=== PATIENT | male | born 1960 | race Caucasian/White ===

== ENCOUNTER → 2020-12-18 | Outpatient (CLI) | payer OTHER ==
--- NOTE | 2020-12-18 08:39 | Diagnostic Imaging Report ---
PROCEDURE: CT abdomen and pelvis without contrast. TECHNIQUE: Multiple contiguous axial images were obtained through the abdomen and pelvis without the use of intravenous contrast. Auto Exposure Controls were utilized during the CT exam to meet ALARA standards for radiation dose reduction. INDICATION: Hematuria. History of kidney stones. No prior studies available for comparison. FINDINGS: The lung bases are clear. There is a 5 cm liver cyst present. The gallbladder and bile ducts are normal. The spleen, pancreas and adrenals are normal. There is a 2 mm nonobstructing calculus in the left kidney. There may be several punctate nonobstructing stones on the right. No suspicious mass or hydronephrosis is seen on either side. The ureters and bladder are normal. Fat planes around the prostate are well-maintained. There is diverticulosis of the colon with no evidence of diverticulitis or other acute bowel abnormality. There is no ascites. There is no adenopathy. There is no acute bony abnormality. IMPRESSION: There is a nonobstructing stone in the left kidney with possible tiny stones on the right. No acute abnormality is seen. Dictated by: Dictated on workstation # [id number]
== END ==
LOC: RAD 08:15
PROVIDERS: ATTEND Urology
DX: N20.0 Calculus of kidney (principal); N40.0 Benign prostatic hyperplasia without lower urinary tract symptoms
CPT/HCPCS: 74176

== ENCOUNTER → 2021-07-17 | Outpatient (CLI) | payer OTHER ==
[~2021-07-17] MED LIST: CATHETER FLUSH 10 ML SYR IVP PRN
[2021-07-17 09:24] VITALS: BP 133/78
--- NOTE | 2021-07-17 14:34 | NUCLEAR STRESS TEST ---
TREADMILL NUCLEAR STRESS TEST Date of procedure: 07/17/2021. Primary care provider: Unknown. Admitting physician: Alvaro Hicks Jr., MD. INDICATION: Premature ventricular complexes. BASELINE ELECTROCARDIOGRAM: Sinus tachycardia at 103 beats per minutes with right axis deviation and low voltage in the precordial leads. STRESS TEST PROCEDURE: The patient was exercised for a total of 4 minutes and 0 seconds of the standard Gregorio protocol achieving a maximum MET level of 5.8. The resting heart rate was 103 bpm and the peak heart rate was 151 bpm, which represents 93% of the maximum predicted heart rate. The resting blood pressure was 133/78 mmHg and the peak blood pressure was 202/95 mmHg. This represents a normal heart rate and a hypertensive blood pressure response to exercise with resting tachycardia. The test was stopped due to fatigue. There was no chest discomfort during the test. There were isolated premature ventricular complexes during stress that resolved in recovery. There were no significant stress induced electrocardiogram changes. The patient exhibited fair exercise capacity for age. NUCLEAR PROCEDURE: The patient was administered 10.9 mCi of intravenous technetium 99m Tetrofosmin at rest for the rest images. The patient was subsequently administered 31 mCi of intravenous technetium 99 M Tetrofosmin at peak stress for the stress images. Following an appropriate wait after each injection, imaging was obtained. The images were subsequently processed and reformatted in the usual views. Gated imaging was obtained. The image quality was adequate with a mild degree of gastrointestinal and motion artifact. CT attenuation correction was used as a adjunct to standard imaging. Both the corrected and uncorrected images were reviewed for interpretation. NUCLEAR RESULTS: There was normal myocardial perfusion in all segments without evidence of infarction or ischemia. There was normal left ventricular chamber size with an end-diastolic volume of 56 mL and an end-systolic volume of 17 mL. There was no evidence of transient ischemic dilatation. The TID ratio was 1.07. There was normal wall motion in all segments with a calculated ejection fraction of 70%. IMPRESSION: 1. Normal heart rate and a hypertensive blood pressure response to exercise with resting tachycardia. 2. There was no chest discomfort or electrocardiogram changes during the test. 3. There were isolated premature ventricular complexes during stress that resolved in recovery. 4. The patient exhibited fair exercise capacity for age at 4 minutes of the Gregorio protocol. 5. There was normal myocardial perfusion in all segments without evidence of infarction or ischemia. 6. There was normal wall motion in all segments with a calculated ejection fraction of 70%. Certain portions of this document may have been dictated utilizing voice recognition technology. Inherent to this technology, typographical and grammatical errors may exist. As much as I am diligent to identify and correct these mistakes, some errors may remain in the document. ALVARO HICKS JR, MD July 17, 2021 14:34
== END ==
LOC: CARD 07:33
PROVIDERS: ATTEND Internal Medicine Cardiovascular Disease
DX: I49.3 Ventricular premature depolarization (principal)
CPT/HCPCS: 78452; 93017; A9502

== ENCOUNTER → 2021-07-18 | Outpatient (CLI) | payer OTHER | LOC: CARD 08:30 | PROVIDERS: ATTEND Internal Medicine Cardiovascular Disease | DX: I35.8 Other nonrheumatic aortic valve disorders (principal); I51.7 Cardiomegaly; I49.3 Ventricular premature depolarization | CPT/HCPCS: 93225; 93226; 93306 ==